=== PATIENT | female | born 1965 ===

== ENCOUNTER 2016-12-11 11:15 | Outpatient (CLI) | payer OTHER ==
--- NOTE | 2016-12-11 15:14 | Diagnostic Imaging Report ---
Indication: Hepatitis C Technique: [place]-scale and duplex images of the upper abdomen were obtained Comparison: 12/09/2014 Findings: Gallbladder is surgically absent. Sonographic Friedman's sign is negative. Common bile duct measures 12 mm in diameter. No intrahepatic biliary ductal dilatation. Liver demonstrates normal echogenicity, no focal abnormality. No hepatic surface nodularity. Portal vein and hepatic veins are patent. Pancreas is unremarkable. Spleen is unremarkable. Left kidney measures 9.9 cm in length. Right kidney measures 10.4 cm length. Both kidneys demonstrate normal echogenicity. There is no hydronephrosis. No focal abnormality . Non-aneurysmal abdominal aorta . Other than a mild caliber increase in the common bile duct, no significant change Impression: Surgically absent gallbladder 12 mm common bile duct. Also previously demonstrated to be dilated, although it is slightly more so on the current exam. Suspect baseline for this patient, but downstream obstruction not excludable. Correlate with liver function tests, consider MRCP for further migration if clinically indicated No focal hepatic abnormalities or findings to suggest cirrhosis Otherwise unremarkable
== END 2016-12-11 13:15 | disposition home or self-care (01) ==
LOC: ULS 11:15
DX: B19.20 Unspecified viral hepatitis C without hepatic coma (principal); Z90.49 Acquired absence of other specified parts of digestive tract
CPT/HCPCS: 76700

== ENCOUNTER 2017-12-04 11:11 | Outpatient (CLI) | payer OTHER ==
--- NOTE | 2017-12-04 15:12 | Diagnostic Imaging Report ---
Indication:Abdominal pain Technique: Grayscale and duplex Doppler imaging of the abdomen performed. Comparison: None Findings: The liver is unremarkable. No micronodularity demonstrated along the surface on high-resolution imaging. The gallbladder is absent. The demonstrated part of the pancreas, aorta and IVC show no abnormalities. The main portal vein is patent. Appropriate flow direction demonstrated. Both kidneys appear unremarkable. The spleen is normal in size. There is no biliary ductal dilatation identified. CBD is measured as 8 mm. Previous measurements were larger. Doppler evaluation of the main portal vein shows patency. There is no ascites. No hydronephrosis seen. Impression: No sonographic evidence of cirrhosis. Some prominence of the CBD. This is chronic. Status post cholecystectomy
== END 2017-12-04 13:11 | disposition home or self-care (01) ==
LOC: ULS 11:11
DX: B19.20 Unspecified viral hepatitis C without hepatic coma (principal)
CPT/HCPCS: 76700